=== PATIENT | female | born 1980 | race African-American/Black ===

== ENCOUNTER 2017-06-25 19:57 | Emergency (ER) | payer SELFPAY ==
[2017-06-25] VITALS (12 sets, daily range): BP systolic 131–143; BP diastolic 85–94; PULSE 79–108; RESP 18; TEMP 98.7
[~2017-06-25 19:57] MED LIST: PRENCAP6 PO
[2017-06-25] MEDS ORDERED: LACTATED RINGER'S 1000 ML INJ 1,000 ML IV SCH (20:26)
[2017-06-25] MEDS ORDERED: ONDANSETRON HCL 4 MG/2 ML VIAL IV PUSH ONE (20:30)
--- NOTE | 2017-06-25 20:37 | PD ---
HPI Chief Complaint N/V/D/abd pain Date Seen: Jun 25, 2017 Time Seen: 20:28 Travel History International Travel<30 Days: No Contact w/Intl Traveler<30Days: No Known Affected Area: No History of Present Illness HPI Pt is a 37y/o @ 31.5wks. She has PNC with Dr. Contreras. She presents this evening for evaluation of possible food poisoning. She states that she ate some seafood yesterday and around 2am last night woke up with indigestion and gas pains. She had emesis and diarrhea. She took diclegis twice today but still was not able to keep down any food. She denies anyone else being sick but no one else ate what she did. She reports feeling BH ctx which are not painful but noticable. She denies LOF or VB. She has +FM. is complicated by AMA, h/o preE in prior preg (was on ASA 81mg until the weekend when she ran out), and failed 1hr glucola (passed 3hr). Weeks Gestation: 31 Para: 2 : 3 History Past Medical History Medical History: Denies Significant Hx Obstetric History Obstetric History x2 h/o preE with G2 Past Surgical History Surgical History: No Previous Surgery Family History Family History: Negative Social History Alcohol Use: No Tobacco Use: No Substance Abuse: No Allergies-Medications (Allergen,Severity, Reaction): Coded Allergies: No Known Allergies (Unverified , 05/02/13) Home Meds Reported Medications Mv & Min W/Fe Fumarat ( 1) Cap, 1 CAP PO DAILY, CAP 05/02/13 Review of Systems Except as stated in HPI: all other systems reviewed are Neg Physical Exam Vital Signs Date Time Temp Pulse Resp B/P (MAP) Pulse Ox O2 Delivery O2 Flow Rate FiO2 06/25/17 20:23 100 143/89 (107) 06/25/17 20:20 108 06/25/17 20:18 98.7 18 Narrative GENERAL: Well-nourished, well-developed patient. SKIN: Warm and dry. HEAD: Normocephalic and atraumatic. EYES: No scleral icterus. No injection or drainage. ABDOMEN/GI: Abdomen soft, non-tender, gravid EXTREMITIES: No cyanosis NEUROLOGICAL: Awake and alert. Motor and sensory grossly within normal limits. FHTs: 150, +accels, occasional mild variable decels, moderate variability, age appropriate TOCO: irregular ctx Data Data Vital Signs Reviewed: Yes Orders Orders Vital Signs (Adult) .ON ADMISSION (06/25/17 20:11) ^ Labor Status (06/25/17 20:11) Urinalysis - C+S If Indicated (06/25/17 20:11) ^ Non Stress Test (06/25/17 20:11) Cbc No Diff, Includes Plts (06/25/17 20:26) Comprehensive Metabolic Panel (06/25/17 20:) Lactated Ringer's 1000 Ml Inj (Lr 1000 M (06/25/17 20:26) Ondansetron Inj (Zofran Inj) (06/25/17 20:30) MDM Plan 37y/o @ 31.5wks with 1. IUP -- cat 1 tracing -- toco with irregular ctx, likely dehydration; bolus per #2 2. N/V -- food indiscretion vs viral gastroenteritis vs UTI -- check UA -- IVF bolus -- IV zofran -- PO challenge 3. elevated BPs -- mild range -- asx -- h/o preE in G2 -- check PIH labs and cycle BPs q15m 4. AMA Diagnosis Diagnosis: Primary Impression: 31 weeks gestation of Additional Impressions: Elevated blood pressure affecting in third trimester, antepartum Nausea and vomiting AMA (advanced maternal age) multigravida 35+ History of pre-eclampsia in prior , currently in third trimester Olga Lidia Thomas MD Jun 25, 2017 20:37
[2017-06-25 21:15] LABS: HEMATOCRIT 33.2 % (35.0-46.0); MEAN CELL VOLUME 71.3 FL (80.0-100.0); MEAN CORPUSCULAR HEMOGLOBIN 23.8 PG (27.0-34.0); MEAN CORPUSCULAR HGB CONC 33.3 % (32.0-36.0); PLATELET COUNT 203 TH/MM3 (150-450); RED BLOOD COUNT 4.65 MIL/MM3 (4.00-5.30); RED CELL DISTRIBUTION WIDTH 18.5 % (11.6-17.2); WHITE BLOOD COUNT 12.9 TH/MM3 (4.0-11.0)
[2017-06-25 21:32] LABS: BACTERIA, URINE RARE /hpf; BLOOD, URINE NEG (NEG); COMMENT (UR) CULT NOT INDICATED; CULTURE IF INDICATED CULT NOT INDICATED; GLUCOSE,URINE NEG (NEG); KETONE, URINE NEG (NEG); MUCUS URINE FEW /lpf (OCC); NITRITE,URINE NEG (NEG); SQUAMOUS EPITHELIAL CELL URINE 3 /hpf (0-5); URINE COLOR YELLOW (YELLW/STRAW)
[2017-06-25 21:34] LABS: REVIEW FLAG FINAL
[2017-06-25 21:36] LABS: ANION GAP 11 MEQ/L (5-15); AST (GOT) 23 U/L (15-37); BICARBONATE 21.2 MEQ/L (21.0-32.0); BLOOD UREA NITROGEN 3 MG/DL (7-18); CHLORIDE 104 MEQ/L (98-107); GLOMERULAR FILTRATION RATE 131 ML/MIN (>89); POTASSIUM 3.6 MEQ/L (3.5-5.1); SODIUM (NA) 136 MEQ/L (136-145)
[2017-06-25 21:37] LABS: ALT (GPT) 21 U/L (10-53)
[2017-06-25 21:39] LABS: ALKALINE PHOSPHATASE 161 U/L (45-117); TOTAL BILIRUBIN ADULT 0.5 MG/DL (0.2-1.0)
[2017-06-25] MEDS ORDERED: ASPI-516 CHEW (21:40)
[2017-06-25] MEDS ORDERED: FERR325C PO (21:40)
[2017-06-25] MEDS ORDERED: [UNRECOGNIZED DRUG - OTHER] PO (21:40)
== END 2017-06-25 21:57 | disposition home or self-care (01) ==
LOC: HOBED 19:57
DX: O26.893 Other specified pregnancy related conditions, third trimester (principal); R11.2 Nausea with vomiting, unspecified; R03.0 Elevated blood-pressure reading, without diagnosis of hypertension; O09.523 Supervision of elderly multigravida, third trimester; Z3A.31 31 weeks gestation of pregnancy
CPT/HCPCS: 59025; 80053; 80307; 81001; 82570; 84156; 85027; 96374; 99284; J2405; J7120

== ENCOUNTER 2017-07-21 14:52 | Emergency (ER) | payer BC ==
[2017-07-21] VITALS (7 sets, daily range): BP systolic 129–150; BP diastolic 76–91; PULSE 77–88; RESP 17–18
[~2017-07-21 14:52] MED LIST changes: +ASPI-516 CHEW; +FERR325C PO; +[UNRECOGNIZED DRUG - OTHER] PO
--- NOTE | 2017-07-21 16:09 | PD ---
HPI Chief Complaint Elevated blood pressure Date Seen: Jul 21, 2017 Time Seen: 16:07 Travel History International Travel<30 Days: No Contact w/Intl Traveler<30Days: No Known Affected Area: No History of Present Illness HPI 37-year-old who is at 35 weeks 3 days comes in today because of elevated blood pressure in the office. Office blood pressure was 152/108 and 148/110. Patient has a mild headache but otherwise has no other symptoms and denies edema or epigastric pain. She has a history of one delivery due to induction and from preeclampsia in the past. Weeks Gestation: 35 Para: 2 : 3 History Past Medical History Narrative Medical Anemia necessitating iron infusion 2 Medical History: Denies Significant Hx Obstetric History Obstetric History Spontaneous vaginal delivery 2 Past Surgical History Surgical History: No Previous Surgery Family History Family History: Negative Social History Alcohol Use: No Tobacco Use: No Substance Abuse: No Allergies-Medications (Allergen,Severity, Reaction): Coded Allergies: No Known Allergies (Unverified , 05/02/13) Home Meds Reported Medications Aspirin (Aspirin) 81 Mg Chew, 81 MG CHEW DAILY, TAB 0 Refills 06/25/17 [declegis] No Conflict Check, 10 MG PO BID for Nausea/Vomiting 06/25/17 Ferrous Sulfate (Iron) 325 Mg Cap, 325 MG PO DAILY for Nutritional Supplement, # 30 TAB 0 Refills 06/25/17 Mv & Min W/Fe Fumarat ( 1) 30 Mg-975 Mcg-200 Mg Cap, 1 CAP PO DAILY, CAP 05/02/13 Review of Systems Except as stated in HPI: all other systems reviewed are Neg Physical Exam Narrative GENERAL: Well-nourished, well-developed patient. SKIN: Warm and dry. HEAD: Normocephalic and atraumatic. EYES: No scleral icterus. No injection or drainage. ENT: No nasal drainage noted. Mucous membranes pink. Airway patent. NECK: Supple, trachea midline. No JVD. CARDIOVASCULAR: Regular rate and rhythm without murmurs, gallops, or rubs. RESPIRATORY: Breath sounds equal bilaterally. No accessory muscle use. ABDOMEN/GI: Abdomen soft, non-tender, bowel sounds present, no rebound, no guarding Gravid to [-36] weeks size Fundal Height: [-] GENITOURINARY: External Genitalia: intact and normal in appearance BUS glands: [-] Cervix: [-] Dilatation: [-] Effacement: [-] Station: [-] Presentation: [-] Membranes: [intact or ruptured] Uterine Contractions: [-] FHT's: Category: [-1] Baseline: [-] 140 Reactive: [-] Moderate Variability: [-] Moderate Decels: [-] Absent EXTREMITIES: No cyanosis or edema. BACK: Nontender without obvious deformity. No CVA tenderness. NEUROLOGICAL: Awake and alert. Motor and sensory grossly within normal limits. Five out of 5 muscle strength in all muscle groups. Normal speech. Data Data Vital Signs Reviewed: Yes Orders Orders Vital Signs (Adult) .ON ADMISSION (07/21/17 16:06) ^ Labor Status (07/21/17 16:06) Urinalysis - C+S If Indicated (07/21/17 16:06) Diet Liquid (07/21/17 Dinner) Cbc No Diff, Includes Plts (07/21/17 16:06) Comprehensive Metabolic Panel (07/21/17 16:06) Uric Acid (07/21/17 16:06) Acetaminophen (Tylenol) (07/21/17 16:15) Labs Laboratory Tests Test 07/21/17 16:29 White Blood Count 9.3 TH/MM3 Red Blood Count 4.19 MIL/MM3 Hemoglobin 10.0 GM/DL Hematocrit 30.9 % Mean Corpuscular Volume 73.9 FL Mean Corpuscular Hemoglobin 23.9 PG Mean Corpuscular Hemoglobin Concent 32.4 % Red Cell Distribution Width 20.5 % Platelet Count 148 TH/MM3 Mean Platelet Volume 10.7 FL Urine Color LIGHT-YELLOW Urine Turbidity CLEAR Urine pH 6.5 Urine Specific [place] 1.006 Urine Protein TRACE mg/dL Urine Glucose (UA) NEG mg/dL Urine Ketones NEG mg/dL Urine Occult Blood MOD Urine Nitrite NEG Urine Bilirubin NEG Urine Urobilinogen LESS THAN 2.0 MG/DL Urine Leukocyte Esterase NEG Urine RBC 8 /hpf Urine WBC 1 /hpf Urine Squamous Epithelial Cells 1 /hpf Urine Bacteria RARE /hpf Microscopic Urinalysis Comment CULT NOT INDICATED Blood Urea Nitrogen 5 MG/DL Creatinine 0.66 MG/DL Random Glucose 72 MG/DL Total Protein 7.0 GM/DL Albumin 2.6 GM/DL Calcium Level 8.5 MG/DL Uric Acid 4.9 MG/DL Alkaline Phosphatase 190 U/L Aspartate Amino Transf (AST/SGOT) 28 U/L Alanine Aminotransferase (ALT/SGPT) 13 U/L Total Bilirubin 0.2 MG/DL Sodium Level 136 MEQ/L Potassium Level 3.7 MEQ/L Chloride Level 107 MEQ/L Carbon Dioxide Level 22.3 MEQ/L Anion Gap 7 MEQ/L Estimat Glomerular Filtration Rate 122 ML/MIN [facility] Medical Record Reviewed: Yes Plan 37-year-old at 35 weeks and 3 days with mildly elevated blood pressures and normal lab values. Patient will see Dr. Contreras again on Thursday and I've given her 24-hour urine collection and taken her off work. Diagnosis Diagnosis: Primary Impression: 35 weeks gestation of Additional Impressions: History of pre-eclampsia in prior , currently in third trimester Gestational hypertension w/o significant proteinuria in 3rd trimester Disposition: 01 DISCHARGE HOME Rosalba Gonzales MD Jul 21, 2017 16:09
[2017-07-21] MEDS ORDERED: ACETAMINOPHEN 325 MG TAB PO ONE (16:15)
[2017-07-21 17:27] LABS: HEMATOCRIT 30.9 % (35.0-46.0); MEAN CELL VOLUME 73.9 FL (80.0-100.0); MEAN CORPUSCULAR HEMOGLOBIN 23.9 PG (27.0-34.0); MEAN CORPUSCULAR HGB CONC 32.4 % (32.0-36.0); PLATELET COUNT 148 TH/MM3 (150-450); RED BLOOD COUNT 4.19 MIL/MM3 (4.00-5.30); RED CELL DISTRIBUTION WIDTH 20.5 % (11.6-17.2); REVIEW FLAG FINAL; WHITE BLOOD COUNT 9.3 TH/MM3 (4.0-11.0)
[2017-07-21 17:36] LABS: BACTERIA, URINE RARE /hpf; BLOOD, URINE MOD (NEG); COMMENT (UR) CULT NOT INDICATED; CULTURE IF INDICATED CULT NOT INDICATED; GLUCOSE,URINE NEG (NEG); KETONE, URINE NEG (NEG); NITRITE,URINE NEG (NEG); PH, URINE 6.5 (5.0-8.5); SQUAMOUS EPITHELIAL CELL URINE 1 /hpf (0-5); URINE COLOR LIGHT-YELLOW (YELLW/STRAW)
[2017-07-21 17:58] LABS: ALT (GPT) 13 U/L (10-53)
[2017-07-21 17:59] LABS: ALKALINE PHOSPHATASE 190 U/L (45-117); TOTAL BILIRUBIN ADULT 0.2 MG/DL (0.2-1.0)
[2017-07-21 18:01] LABS: ANION GAP 7 MEQ/L (5-15); AST (GOT) 28 U/L (15-37); BICARBONATE 22.3 MEQ/L (21.0-32.0); BLOOD UREA NITROGEN 5 MG/DL (7-18); CHLORIDE 107 MEQ/L (98-107); GLOMERULAR FILTRATION RATE 122 ML/MIN (>89); POTASSIUM 3.7 MEQ/L (3.5-5.1); SODIUM (NA) 136 MEQ/L (136-145); URIC ACID 4.9 MG/DL (2.6-6.0)
[2017-07-22 21:23] LABS: URINE TOTAL PROTEIN TIMED 24.8 MG/DL
== END 2017-07-21 19:28 | disposition home or self-care (01) ==
LOC: HOBED 14:52
DX: O13.3 Gestational [pregnancy-induced] hypertension without significant proteinuria, third trimester (principal); R51 Headache; Z3A.35 35 weeks gestation of pregnancy
CPT/HCPCS: 36415; 59025; 80053; 81001; 84157; 84550; 85027

== ENCOUNTER 2017-07-24 11:03 | Inpatient (IN) | payer BC ==
[2017-07-23] MEDS: LACTATED RINGER'S 1000 ML INJ 1,000 ML IV SCH (13:45)
[2017-07-24] VITALS (35 sets, daily range): BP systolic 120–147; BP diastolic 71–95; PULSE 64–91; RESP 18; TEMP 97.3–99.2
[~2017-07-24] VITALS: Ht 165.1 cm; Wt 76.7 kg
[2017-07-24] MEDS: LACTATED RINGER'S 1000 ML INJ 1,000 ML IV SCH ×3 (05:45→21:46)
[2017-07-24 11:56] LABS: HEMATOCRIT 33.5 % (35.0-46.0); MEAN CELL VOLUME 73.2 FL (80.0-100.0); MEAN CORPUSCULAR HGB CONC 31.5 % (32.0-36.0); PLATELET COUNT 124 TH/MM3 (150-450); RED BLOOD COUNT 4.58 MIL/MM3 (4.00-5.30); RED CELL DISTRIBUTION WIDTH 20.9 % (11.6-17.2); REVIEW FLAG FINAL; WHITE BLOOD COUNT 7.5 TH/MM3 (4.0-11.0)
[2017-07-24 11:59] LABS: BACTERIA, URINE RARE /hpf; BLOOD, URINE SMALL (NEG); COMMENT (UR) CULT NOT INDICATED; CULTURE IF INDICATED CULT NOT INDICATED; GLUCOSE,URINE NEG (NEG); KETONE, URINE NEG (NEG); MUCUS URINE FEW /lpf (OCC); NITRITE,URINE NEG (NEG); SQUAMOUS EPITHELIAL CELL URINE 3 /hpf (0-5); URINE COLOR YELLOW (YELLW/STRAW)
[2017-07-24 12:20] LABS: ALT (GPT) 19 U/L (10-53); ANION GAP 7 MEQ/L (5-15); AST (GOT) 18 U/L (15-37); BICARBONATE 24.7 MEQ/L (21.0-32.0); BLOOD UREA NITROGEN 3 MG/DL (7-18); CHLORIDE 107 MEQ/L (98-107); GLOMERULAR FILTRATION RATE 139 ML/MIN (>89); POTASSIUM 3.5 MEQ/L (3.5-5.1); SODIUM (NA) 139 MEQ/L (136-145); URIC ACID 4.9 MG/DL (2.6-6.0)
[2017-07-24 12:22] LABS: ALKALINE PHOSPHATASE 209 U/L (45-117); TOTAL BILIRUBIN ADULT 0.4 MG/DL (0.2-1.0)
--- NOTE | 2017-07-24 13:46 | PD ---
HPI Chief Complaint 35 weeks and 6 days Headache Nausea and vomiting Elevated BP Travel History International Travel<30 Days: No Contact w/Intl Traveler<30Days: No Known Affected Area: No History of Present Illness HPI Pt is a 37 yo . Pt under care of Dr Contreras, Pt was seen here with elevated BPs on 07/22/2017. She was sent home on modified bed rest and started 24 hour urine collection. Pt was then started on Labetalol 100mg po BID Pt has h/o prior IOL o/a pre-eclampsia. Platelets are 124,000 today, down from 148,000 on 07/22/2017 Pt presents today, c/o headaches, no vision changes but reports nausea and vomiting. Active movements. No vaginal bleeding or discharge. Pt states GBS was negative in office. Weeks Gestation: 36 Para: 2 : 3 History Past Medical History Medical History: Denies Significant Hx Obstetric History Obstetric History Previous h/o pre-eclampsia. Induced. Past Surgical History Surgical History: No Previous Surgery Family History Family History: Negative Social History Alcohol Use: No Tobacco Use: No Substance Abuse: No Allergies-Medications (Allergen,Severity, Reaction): Coded Allergies: No Known Allergies (Unverified Adverse Reaction, Unknown, 07/24/17) Home Meds Reported Medications Aspirin (Aspirin) 81 Mg Chew, 81 MG CHEW DAILY, TAB 0 Refills 06/25/17 [declegis] No Conflict Check, 10 MG PO BID for Nausea/Vomiting 06/25/17 Ferrous Sulfate (Iron) 325 Mg Cap, 325 MG PO DAILY for Nutritional Supplement, # 30 TAB 0 Refills 06/25/17 Mv & Min W/Fe Fumarat ( 1) 30 Mg-975 Mcg-200 Mg Cap, 1 CAP PO DAILY, CAP 05/02/13 Review of Systems Except as stated in HPI: all other systems reviewed are Neg Physical Exam Vital Signs Date Time Temp Pulse Resp B/P (MAP) Pulse Ox O2 Delivery O2 Flow Rate FiO2 07/24/17 13:00 79 133/86 (102) 07/24/17 12:45 83 139/95 (110) 07/24/17 12:30 82 142/89 (106) 07/24/17 12:15 90 135/92 (106) 07/24/17 12:00 91 138/94 (109) 07/24/17 11:45 90 146/91 (109) 07/24/17 11:43 97.3 18 07/24/17 11:39 79 139/94 (109) Narrative GENERAL: Well-nourished, well-developed patient. SKIN: Warm and dry. HEAD: Normocephalic and atraumatic. EYES: No scleral icterus. No injection or drainage. ENT: No nasal drainage noted. Mucous membranes pink. Airway patent. NECK: Supple, trachea midline. No JVD. CARDIOVASCULAR: Regular rate and rhythm without murmurs, gallops, or rubs. RESPIRATORY: Breath sounds equal bilaterally. No accessory muscle use. BREASTS: Bilateral exam showed no masses , no retractions, no nipple discharge. ABDOMEN/GI: Abdomen soft, non-tender, bowel sounds present, no rebound, no guarding Gravid to [36] weeks size Fundal Height: [36] GENITOURINARY: External Genitalia: intact and normal in appearance Cervix: [soft] Dilatation: [1cm] Effacement: [60%] Station: [-3] Presentation: [-] Membranes: [intact] Uterine Contractions: [between 2-6 minutes, patient does not feel these-] FHT's: Category: [1] Baseline: [130] Reactive: [-] Variability: [good] Decels: [none] EXTREMITIES: No cyanosis or edema. BACK: Nontender without obvious deformity. No CVA tenderness. NEUROLOGICAL: Awake and alert. Motor and sensory grossly within normal limits. Five out of 5 muscle strength in all muscle groups. Normal speech. Data Data Vital Signs Reviewed: Yes Orders Orders Vital Signs (Adult) .ON ADMISSION (07/24/17 11:14) ^ Labor Status (07/24/17 11:14) Cbc No Diff, Includes Plts (07/24/17 11:14) Comprehensive Metabolic Panel (07/24/17 11:14) Uric Acid (07/24/17 11:14) Urinalysis - C+S If Indicated (07/24/17 11:29) Group B Strep: Negative Labs Laboratory Tests Test 07/24/17 11:35 White Blood Count 7.5 Red Blood Count 4.58 Hemoglobin 10.6 Hematocrit 33.5 Mean Corpuscular Volume 73.2 Mean Corpuscular Hemoglobin 23.0 Mean Corpuscular Hemoglobin Concent 31.5 Red Cell Distribution Width 20.9 Platelet Count 124 Mean Platelet Volume 9.3 Urine Color YELLOW Urine Turbidity CLEAR Urine pH 7.0 Urine Specific [place] 1.012 Urine Protein 30 Urine Glucose (UA) NEG Urine Ketones NEG Urine Occult Blood SMALL Urine Nitrite NEG Urine Bilirubin NEG Urine Urobilinogen LESS THAN 2.0 Urine Leukocyte Esterase NEG Urine RBC 23 Urine WBC 1 Urine Squamous Epithelial Cells 3 Urine Bacteria RARE Urine Mucus FEW Microscopic Urinalysis Comment CULT NOT INDICATED Blood Urea Nitrogen 3 Creatinine 0.59 Random Glucose 83 Total Protein 7.5 Albumin 2.9 Calcium Level 8.6 Uric Acid 4.9 Alkaline Phosphatase 209 Aspartate Amino Transf (AST/SGOT) 18 Alanine Aminotransferase (ALT/SGPT) 19 Total Bilirubin 0.4 Sodium Level 139 Potassium Level 3.5 Chloride Level 107 Carbon Dioxide Level 24.7 Anion Gap 7 Estimat Glomerular Filtration Rate 139 MDM Medical Record Reviewed: Yes Interpretation(s) 37 yo at 35 weeks and 6 days. Admitted for pre-eclampsia. BP 130/90-100 despite being on Labetalol 100mg BID 521 mg on 24 hour urine protein Platelets down to 124,000 down from 148,00 2 days ago. Cervix not favorable but jean pierre too frequently for Misoprostil. We plan low dose Pitocin with Cervical balloon. GBS negative Diagnosis Diagnosis: Primary Impression: 36 weeks gestation of Additional Impressions: Pre-eclampsia Admitted to labor and delivery Jac Chowdhury MD Jul 24, 2017 13:46
[2017-07-24] MEDS ORDERED: LACTATED RINGER'S 1000 ML INJ 1,000 ML IV PRN (14:24)
[2017-07-24] MEDS ORDERED: LIDOCAINE HCL 1% 50 ML VIAL I-DERMAL PRN (14:30)
[2017-07-24] MEDS ORDERED: OXYTOCIN 30 UNITS-500ML PREMIX 500 ML IV ONE (14:30)
[2017-07-24] MEDS ORDERED: ONDANSETRON HCL 4 MG/2 ML VIAL IV PUSH PRN (14:30)
[2017-07-24] MEDS ORDERED: CITRIC ACID-SODIUM CITRATE LIQ 30 ML UDC PO SCH (14:30)
[2017-07-24] MEDS ORDERED: MINERAL OIL 10 ML VIAL TOPICAL PRN (14:30)
[2017-07-24] MEDS ORDERED: LIDOCAINE HCL 1% 50 ML VIAL INFIL PRN (14:30)
[2017-07-24] MEDS ORDERED: SODIUM CHLORID 0.9% 500 ML INJ 500 ML IV PRN (14:30)
--- NOTE | 2017-07-24 14:35 | HHI.HP ---
HPI Chief Complaint 35 weeks and 6 days Headaches, nausea /vomiting Elevated BP Travel History International Travel<30 Days: No Contact w/Intl Traveler<30Days: No Known Affected Area: No History of Present Illness HPI Pt is a 37 yo . Pt under care of Dr Contreras, Pt was seen here with elevated BPs on 07/22/2017. She was sent home on modified bed rest and started 24 hour urine collection. Pt was then started on Labetalol 100mg po BID Pt has h/o prior IOL o/a pre-eclampsia. Platelets are 124,000 today, down from 148,000 on 07/22/2017 Pt presents today, c/o headaches, no vision changes but reports nausea and vomiting. Active movements. No vaginal bleeding or discharge. Pt states GBS was negative in office. Weeks Gestation: 36 Para: 2 : 3 History Past Medical History Medical History: Denies Significant Hx Obstetric History Obstetric History Previous h/o pre-eclampsia Past Surgical History Surgical History: No Previous Surgery Family History Family History: Negative Social History Alcohol Use: No Tobacco Use: No Substance Abuse: No Allergies-Medications (Allergen,Severity, Reaction): Coded Allergies: No Known Allergies (Unverified Adverse Reaction, Unknown, 07/24/17) Home Meds Reported Medications Aspirin (Aspirin) 81 Mg Chew, 81 MG CHEW DAILY, TAB 0 Refills 06/25/17 [declegis] No Conflict Check, 10 MG PO BID for Nausea/Vomiting 06/25/17 Ferrous Sulfate (Iron) 325 Mg Cap, 325 MG PO DAILY for Nutritional Supplement, # 30 TAB 0 Refills 06/25/17 Mv & Min W/Fe Fumarat ( 1) 30 Mg-975 Mcg-200 Mg Cap, 1 CAP PO DAILY, CAP 05/02/13 Review of Systems Except as stated in HPI: all other systems reviewed are Neg Physical Exam Vital Signs Date Time Temp Pulse Resp B/P (MAP) Pulse Ox O2 Delivery O2 Flow Rate FiO2 07/24/17 13:15 82 133/87 (102) 07/24/17 13:00 79 133/86 (102) 07/24/17 12:45 83 139/95 (110) 07/24/17 12:30 82 142/89 (106) 07/24/17 12:15 90 135/92 (106) 07/24/17 12:00 91 138/94 (109) 07/24/17 11:45 90 146/91 (109) 07/24/17 11:43 97.3 18 07/24/17 11:39 79 139/94 (109) Narrative GENERAL: Well-nourished, well-developed patient. SKIN: Warm and dry. HEAD: Normocephalic and atraumatic. EYES: No scleral icterus. No injection or drainage. ENT: No nasal drainage noted. Mucous membranes pink. Airway patent. NECK: Supple, trachea midline. No JVD. CARDIOVASCULAR: Regular rate and rhythm without murmurs, gallops, or rubs. RESPIRATORY: Breath sounds equal bilaterally. No accessory muscle use. BREASTS: Bilateral exam showed no masses , no retractions, no nipple discharge. ABDOMEN/GI: Abdomen soft, non-tender, bowel sounds present, no rebound, no guarding Gravid to [36] weeks size Fundal Height: [36] GENITOURINARY: External Genitalia: intact and normal in appearance BUS glands: [wnl] Cervix: [soft] Dilatation: [1cm] Effacement: [60%] Station: [-3] Presentation: [vertex] Membranes: [intact] Uterine Contractions: [2-6 minutes] FHT's: Category: [1] Baseline: [130s] Reactive: [Y] Variability: [good] Decels: [decells] EXTREMITIES: No cyanosis or edema. BACK: Nontender without obvious deformity. No CVA tenderness. NEUROLOGICAL: Awake and alert. Motor and sensory grossly within normal limits. Five out of 5 muscle strength in all muscle groups. Normal speech. Caprini VTE Risk Assessment Caprini VTE Risk Assessment: No/Low Risk (score <= 1) Caprini Risk Assessment Model Point Value = 1 Point Value = 2 Point Value = 3 Point Value = 5 Age 41-60 Minor surgery BMI > 25 kg/m2 Swollen legs Varicose veins or History of unexplained or recurrent spontaneous Oral contraceptives or hormone replacement Sepsis (< 1 month) Serious lung disease, including pneumonia (< 1 month) Abnormal pulmonary function Acute myocardial infarction Congestive heart failure (< 1 month) History of inflammatory bowel disease Medical patient at bed rest Age 61-74 Arthroscopic surgery Major open surgery (> 45 min) Laparoscopic surgery (> 45 min) Malignancy Confined to bed (> 72 hours) Immobilizing plaster cast Central venous access Age >= 75 History of VTE Family history of VTE Factor V Leiden Prothrombin [id number] Lupus anticoagulant Anticardiolipin antibodies Elevated serum homocysteine Heparin-induced thrombocytopenia Other congenital or acquired thrombophilia Stroke (< 1 month) Elective arthroplasty Hip, pelvis, or leg fracture Acute spinal cord injury (< 1 month) Prophylaxis Regimen Total Risk Factor Score Risk Level Prophylaxis Regimen 0-1 Low Early ambulation 2 Moderate Order ONE of the following: *Sequential Compression Device (SCD) *Heparin 5000 units SQ BID 3-4 Higher Order ONE of the following medications: *Heparin 5000 units SQ TID *Enoxaparin/Lovenox 40 mg SQ daily (WT < 150 kg, CrCl > 30 mL/min) *Enoxaparin/Lovenox 30 mg SQ daily (WT < 150 kg, CrCl > 10-29 mL/min) *Enoxaparin/Lovenox 30 mg SQ BID (WT < 150 kg, CrCl > 30 mL/min) AND/OR *Sequential Compression Device (SCD) 5 or more Highest Order ONE of the following medications: *Heparin 5000 units SQ TID (Preferred with Epidurals) *Enoxaparin/Lovenox 40 mg SQ daily (WT < 150 kg, CrCl > 30 mL/min) *Enoxaparin/Lovenox 30 mg SQ daily (WT < 150 kg, CrCl > 10-29 mL/min) *Enoxaparin/Lovenox 30 mg SQ BID (WT < 150 kg, CrCl > 30 mL/min) AND *Sequential Compression Device (SCD) Data Data Vital Signs Reviewed: Yes Orders Orders Vital Signs (Adult) .ON ADMISSION (07/24/17 11:14) ^ Labor Status (07/24/17 11:14) Cbc No Diff, Includes Plts (07/24/17 11:14) Comprehensive Metabolic Panel (07/24/17 11:14) Uric Acid (07/24/17 11:14) Urinalysis - C+S If Indicated (07/24/17 11:29) Ob (2e) Additional Admit Info (07/24/17 13:32) Diet Regular Basic (07/24/17 Lunch) Group B Strep: Negative Labs Laboratory Tests Test 07/24/17 11:35 White Blood Count 7.5 Red Blood Count 4.58 Hemoglobin 10.6 Hematocrit 33.5 Mean Corpuscular Volume 73.2 Mean Corpuscular Hemoglobin 23.0 Mean Corpuscular Hemoglobin Concent 31.5 Red Cell Distribution Width 20.9 Platelet Count 124 Mean Platelet Volume 9.3 Urine Color YELLOW Urine Turbidity CLEAR Urine pH 7.0 Urine Specific [place] 1.012 Urine Protein 30 Urine Glucose (UA) NEG Urine Ketones NEG Urine Occult Blood SMALL Urine Nitrite NEG Urine Bilirubin NEG Urine Urobilinogen LESS THAN 2.0 Urine Leukocyte Esterase NEG Urine RBC 23 Urine WBC 1 Urine Squamous Epithelial Cells 3 Urine Bacteria RARE Urine Mucus FEW Microscopic Urinalysis Comment CULT NOT INDICATED Blood Urea Nitrogen 3 Creatinine 0.59 Random Glucose 83 Total Protein 7.5 Albumin 2.9 Calcium Level 8.6 Uric Acid 4.9 Alkaline Phosphatase 209 Aspartate Amino Transf (AST/SGOT) 18 Alanine Aminotransferase (ALT/SGPT) 19 Total Bilirubin 0.4 Sodium Level 139 Potassium Level 3.5 Chloride Level 107 Carbon Dioxide Level 24.7 Anion Gap 7 Estimat Glomerular Filtration Rate 139 Assessment/Plan Assessment and Plan 37 yo at 35 weeks and 6 days . Patient being admitted for IOL o/a Pre-eclampsia without severe symptoms. Normal tendon reflexes at patella. Pt has low platelets, and BP is at 130s/90s We plan low dose Pitocin and will attempt cervical balloon Attending Attestation I personally interviewed and examined this patient and was involved in all significant decision making Jac Chowdhury MD Jul 24, 2017 14:35
[2017-07-24] MEDS ORDERED: SODIUM CHLOR 0.9% 1000 ML INJ 1,000 ML IV PRN (14:44)
[2017-07-24] MEDS ORDERED: OXYTOCIN 30 UNITS-500ML PREMIX 500 ML IV SCH (15:00)
[2017-07-25] VITALS (74 sets, daily range): BP systolic 106–173; BP diastolic 38–107; PULSE 60–107; RESP 17–20; TEMP 98.5–98.9; O2SAT 98
[2017-07-25] MEDS: LACTATED RINGER'S 1000 ML INJ 1,000 ML IV SCH ×2 (05:45→05:47)
--- NOTE | 2017-07-25 09:05 | PD.LABORPN ---
Subjective Subjective requesting pain meds Objective Vital Signs Vital Signs Date Time Temp Pulse Resp B/P (MAP) Pulse Ox O2 Delivery O2 Flow Rate FiO2 07/25/17 08:15 70 146/87 (106) 07/25/17 08:00 67 138/89 (105) 07/25/17 07:45 72 139/85 (103) 07/25/17 07:30 98.9 74 18 147/95 (112) 07/25/17 07:00 70 140/90 (107) 07/25/17 06:45 67 144/90 (108) 07/25/17 06:30 69 137/93 (108) 07/25/17 06:30 18 07/25/17 06:15 67 134/85 (101) 07/25/17 06:00 17 07/25/17 06:00 68 142/83 (102) 07/25/17 05:53 98.9 07/25/17 05:45 71 138/83 (101) 07/25/17 05:30 17 07/25/17 05:30 68 133/83 (100) 07/25/17 05:15 67 129/82 (98) 07/25/17 05:00 70 137/88 (104) 07/25/17 05:00 18 07/25/17 04:46 69 148/83 (104) 07/25/17 04:30 18 07/25/17 04:30 70 146/75 (98) 07/25/17 04:15 71 149/88 (108) 07/25/17 04:00 69 144/96 (112) 07/25/17 04:00 17 07/25/17 03:45 68 07/25/17 03:45 138/92 (107) 07/25/17 03:30 17 07/25/17 03:30 69 139/93 (108) 07/25/17 03:15 75 140/90 (107) 07/25/17 03:00 68 139/89 (106) 07/25/17 03:00 18 07/25/17 02:45 73 136/96 (109) 07/25/17 02:30 67 07/25/17 02:30 18 07/25/17 02:30 132/83 (99) 07/25/17 02:15 66 139/84 (102) 07/25/17 02:00 18 07/25/17 02:00 67 147/85 (105) 07/25/17 01:45 63 141/85 (103) 07/25/17 01:31 61 137/66 (89) 07/25/17 01:30 18 07/25/17 01:15 60 149/79 (102) Objective Pelvic Exam: Cervix: [-] Dilatation: [-] 4 Effacement: [-] 80 Station: [-] -2 Presentation: [-] vtx Membranes: [intact or ruptured] arom clear Uterine Contractions: [-] q4-5 min FHT's: Category: [-] 1 Baseline: [-] Reactive: [-] R Variability: [-] good Decels: [-] Weeks Gestation: 36 Gest Age Assessed Date: Jul 25, 2017 Gest Age Assessed Time: 09:02 Pt started active labor?: Yes Active labor start date: Jul 25, 2017 Active labor start time: 09:02 Medical induction of labor?: Yes Medical induction start date: Jul 24, 2017 Medical induction start time: 14:00 Artificial rupture of membrane: Yes Artificial ROM date: Jul 25, 2017 Artifical ROM time: 09:02 Assessment/Plan Problem List: (1) Pre-eclampsia ICD Codes: O14.90 - Unspecified pre-eclampsia, unspecified trimester Status: Acute (2) 36 weeks gestation of ICD Codes: Z3A.36 - 36 weeks gestation of Status: Acute Assessment and Plan Arom , on pitocin 12 mu f/u labor progress, anticipate analgesia Cher Oliver MD Jul 25, 2017 09:05
[2017-07-25] MEDS ORDERED: fentaNYL 2MCG-BUPIV 0.125% INJ 100 ML ONE (09:51)
[2017-07-25] MEDS ORDERED: ePHEDrine/NS 25 MG/5 ML SYR ONE (10:02)
--- NOTE | 2017-07-25 11:49 | PD.OB.DELI ---
Weeks gestation: 36 Gest age assessed date: Jul 25, 2017 Gest age assessed time: 09:02 Pt started active labor?: Yes Active labor start date: Jul 25, 2017 Active labor start time: 09:02 Medical induction of labor?: Yes Medical induction start date: Jul 24, 2017 Medical induction start time: 14:00 Artificial rupture of membrane: Yes Artificial ROM date: Jul 25, 2017 Artifical ROM time: 08:31 Anesthesia: Epidural Episiotomy: None Vaginal Delivery: Normal Presentation: Occiput anterior Nuchal Cord: None Delayed cord clamping (45 sec): Yes : Female Delivery date: Jul 25, 2017 Delivery time: 11:37 One Minute : 8 Five Minute : 9 Placenta: Spontaneous delivery Laceration: No lacerations Estimated blood loss: 250cc Cher Zee MD Jul 25, 2017 11:49
[2017-07-25] MEDS ORDERED: ACETAMINOPHEN 325 MG TAB PO PRN (12:00)
[2017-07-25] MEDS ORDERED: ZOLPIDEM TARTRATE 5 MG TAB PO PRN (12:00)
[2017-07-25] MEDS ORDERED: ALUMINUM/MAGNESIUM/SIMETH 30 ML CUP PO PRN (12:00)
[2017-07-25] MEDS ORDERED: OXYTOCIN 30 UNITS-500ML PREMIX 500 ML IV SCH (12:00)
[2017-07-25] MEDS ORDERED: DOCUSATE SODIUM 50 MG/SENNA 8.6 MG TAB PO PRN (12:00)
[2017-07-25] MEDS ORDERED: SODIUM CHLORIDE 0.9% FLUSH 10 ML FLUSH IV FLUSH PRN (12:00)
[2017-07-25] MEDS ORDERED: BENZOCAINE 20% TOPICAL SPRAY 60 ML CAN TOPICAL PRN (12:00)
[2017-07-25] MEDS ORDERED: WITCH HAZEL 50%/GLYCERIN 12.5% 40 PAD JAR TOPICAL PRN (12:00)
[2017-07-25] MEDS ORDERED: OXYTOCIN 30 UNITS-500ML PREMIX 500 ML ONE (12:00)
[2017-07-25] MEDS ORDERED: ONDANSETRON ODT 4 MG TAB PO PRN (12:00)
[2017-07-25] MEDS ORDERED: DIPHTH/TETANUS/ACEL PERTUSSIS (BOOSTER) 0.5 ML VIAL/PFS IM ONE (16:00)
[2017-07-25] MEDS ORDERED: MEASLES, MUMPS, RUBELLA VACCINE 0.5 ML VIAL SQ ONE (16:00)
[2017-07-25] MEDS: LABETALOL HCL 100 MG TAB PO SCH (18:45)
[2017-07-25] MEDS: IBUPROFEN 800 MG TAB PO PRN (20:51)
[2017-07-25] MEDS ORDERED: SODIUM CHLORIDE 0.9% FLUSH 10 ML FLUSH IV FLUSH SCH (21:00)
[2017-07-26 02:28] VITALS: BP 110/76; PULSE 88; RESP 18
[2017-07-26] MEDS: IBUPROFEN 800 MG TAB PO PRN ×2 (03:06→20:06)
[2017-07-26] MEDS: LABETALOL HCL 100 MG TAB PO SCH ×2 (06:00→17:54)
[2017-07-26 06:05] VITALS: BP 134/83; PULSE 67
[2017-07-26 07:53] VITALS: BP 123/61; PULSE 61; RESP 20; TEMP 98.1
--- NOTE | 2017-07-26 09:04 | HHI.OB ---
Subjective Post Day: 1 Remarks no complaints, breast and bottlefeeding Objective Vitals/I&O Vital Signs Date Time Temp Pulse Resp B/P (MAP) Pulse Ox O2 Delivery O2 Flow Rate FiO2 07/26/17 07:53 98.1 61 20 07/26/17 07:53 123/61 (81) 07/26/17 06:05 67 134/83 (100) 07/26/17 02:28 88 18 110/76 (87) 07/25/17 20:53 98.5 74 18 151/85 (107) 98 07/25/17 13:20 18 07/25/17 13:18 66 147/87 (107) 07/25/17 12:55 18 07/25/17 12:45 64 145/82 (103) 07/25/17 12:30 68 146/82 (103) 07/25/17 12:15 70 133/77 (95) 07/25/17 12:12 18 07/25/17 12:10 18 07/25/17 12:00 71 138/80 (99) 07/25/17 11:55 98.9 07/25/17 11:48 75 132/83 (99) 07/25/17 11:47 86 132/38 (69) 07/25/17 11:45 107 127/61 (83) 07/25/17 11:45 18 07/25/17 11:35 105 123/56 (78) 07/25/17 11:31 97 106/58 (74) 07/25/17 11:25 96 135/81 (99) 07/25/17 11:20 86 124/106 (112) 07/25/17 11:15 82 128/71 (90) 07/25/17 11:10 71 126/66 (86) 07/25/17 11:05 75 120/74 (89) 07/25/17 11:00 79 130/68 (88) 07/25/17 10:55 79 125/72 (89) 07/25/17 10:50 75 123/67 (85) 07/25/17 10:50 77 07/25/17 10:45 82 07/25/17 10:45 85 122/71 (88) 07/25/17 10:45 18 07/25/17 10:40 79 07/25/17 10:40 81 124/76 (92) 07/25/17 10:37 98.7 07/25/17 10:35 79 07/25/17 10:35 76 07/25/17 10:35 119/75 (90) 07/25/17 10:30 128/77 (94) 07/25/17 10:30 74 07/25/17 10:30 75 07/25/17 10:27 80 143/85 (104) 07/25/17 10:25 83 07/25/17 10:21 87 173/107 (129) 07/25/17 10:20 87 07/25/17 10:15 18 07/25/17 10:15 76 155/89 (111) 07/25/17 10:00 72 153/81 (105) 07/25/17 09:45 20 07/25/17 09:30 69 160/94 (116) 07/25/17 09:19 70 147/90 (109) 07/25/17 09:15 18 07/25/17 09:15 70 160/97 (118) 07/25/17 09:06 65 138/84 (102) Objective Remarks GENERAL: Well-nourished, well-developed patient. CARDIOVASCULAR: Regular rate and rhythm without murmurs, gallops, or rubs. RESPIRATORY: Breath sounds equal bilaterally. No accessory muscle use. ABDOMEN/GI: Abdomen soft, non-tender. Fundus: Firm, non-tender at umbilicus. GENITOURINARY: Light to moderate bleeding. EXTREMITIES: No cyanosis or edema, non-tender, without signs of DVT. Medications and IVs Current Medications Medications (Trade) Dose Ordered Sig/Gurjit Route Start Time Stop Time Status Last Admin (NS Flush) 2 ml BID IV FLUSH 07/25/17 21:00 (NS Flush) 2 ml UNSCH PRN IV FLUSH 07/25/17 12:00 (Tylenol) 650 mg Q4H PRN PO 07/25/17 12:00 (Motrin) 800 mg Q8H PRN PO 07/25/17 12:00 07/26/17 03:06 (Americaine 20% Top Spr) 1 spray Q4H PRN TOPICAL 07/25/17 12:00 (Tucks Pads) 1 applic QID PRN TOPICAL 07/25/17 12:00 (Sophy-Colace) 2 tab Q12H PRN PO 07/25/17 12:00 (Ambien) 5 mg HS PRN PO 07/25/17 12:00 (Mag-Al Plus Susp Liq) 15 ml Q8H PRN PO 07/25/17 12:00 (Zofran Odt) 4 mg Q6H PRN PO 07/25/17 12:00 (Trandate) 100 mg BID@0600,1800 PO 07/25/17 18:00 07/26/17 06:00 Assessment/Plan Problem List: (1) Pre-eclampsia ICD Codes: O14.90 - Unspecified pre-eclampsia, unspecified trimester Status: Acute (2) 36 weeks gestation of ICD Codes: Z3A.36 - 36 weeks gestation of Status: Acute (3) Vaginal delivery ICD Codes: O80 - Encounter for full-term uncomplicated delivery Assessment and Plan 37 yo at 35 weeks and 6 d , s/p for pre-eclampsia on labetolol 100mg po BID. PPD #1 Discharge Planning routine Attending Attestation pt seen by Cher Burdick MD Jul 26, 2017 09:04
[2017-07-26] MEDS ORDERED: PRAMOXINE 1% RECTAL FOAM 15 GM CAN RECTAL PRN (14:00)
[2017-07-26 14:13] VITALS: BP 131/72; PULSE 64; RESP 18; TEMP 98.2
[2017-07-26 16:24] VITALS: BP 145/85; PULSE 68; RESP 18; TEMP 98.2
[2017-07-26 21:16] VITALS: BP 137/74; PULSE 76; RESP 16; TEMP 98.2
[2017-07-27] MEDS: LABETALOL HCL 100 MG TAB PO SCH (06:45)
[2017-07-27 07:50] VITALS: BP 139/87; PULSE 73; RESP 18; TEMP 98.9
[2017-07-27] MEDS: IBUPROFEN 800 MG TAB PO PRN (11:42)
[2017-07-27 11:43] LABS: HEMATOCRIT 28.2 % (35.0-46.0); MEAN CELL VOLUME 74.9 FL (80.0-100.0); MEAN CORPUSCULAR HEMOGLOBIN 23.4 PG (27.0-34.0); MEAN CORPUSCULAR HGB CONC 31.3 % (32.0-36.0); PLATELET COUNT 119 TH/MM3 (150-450); RED BLOOD COUNT 3.77 MIL/MM3 (4.00-5.30); RED CELL DISTRIBUTION WIDTH 21.7 % (11.6-17.2); REVIEW FLAG FINAL; WHITE BLOOD COUNT 9.5 TH/MM3 (4.0-11.0)
[2017-07-27 12:09] LABS: INDIRECT BILIRUBIN 0.2 MG/DL (0.0-0.8); TOTAL BILIRUBIN ADULT 0.3 MG/DL (0.2-1.0)
--- NOTE | 2017-07-27 14:17 | HHI.OB ---
Subjective Post Day: 2 Objective Vitals/I&O Vital Signs Date Time Temp Pulse Resp B/P (MAP) Pulse Ox O2 Delivery O2 Flow Rate FiO2 07/27/17 07:50 98.9 73 18 07/27/17 07:50 139/87 (104) 07/26/17 21:16 98.2 07/26/17 21:16 76 16 137/74 (95) 07/26/17 16:24 98.2 68 18 145/85 (105) Objective Remarks GENERAL: Well-nourished, well-developed patient. CARDIOVASCULAR: Regular rate and rhythm without murmurs, gallops, or rubs. RESPIRATORY: Breath sounds equal bilaterally. No accessory muscle use. ABDOMEN/GI: Abdomen soft, tender with palpation. Fundus: Firm, non-tender at umbilicus. GENITOURINARY: Light to moderate bleeding. EXTREMITIES: No cyanosis or edema, non-tender, without signs of DVT. Medications and IVs Current Medications Medications (Trade) Dose Ordered Sig/Gurjit Route Start Time Stop Time Status Last Admin (NS Flush) 2 ml BID IV FLUSH 07/25/17 21:00 (NS Flush) 2 ml UNSCH PRN IV FLUSH 07/25/17 12:00 (Tylenol) 650 mg Q4H PRN PO 07/25/17 12:00 (Motrin) 800 mg Q8H PRN PO 07/25/17 12:00 07/27/17 11:42 (Americaine 20% Top Spr) 1 spray Q4H PRN TOPICAL 07/25/17 12:00 (Tucks Pads) 1 applic QID PRN TOPICAL 07/25/17 12:00 (Sophy-Colace) 2 tab Q12H PRN PO 07/25/17 12:00 (Ambien) 5 mg HS PRN PO 07/25/17 12:00 (Mag-Al Plus Susp Liq) 15 ml Q8H PRN PO 07/25/17 12:00 (Zofran Odt) 4 mg Q6H PRN PO 07/25/17 12:00 (Trandate) 100 mg BID@0600,1800 PO 07/25/17 18:00 07/27/17 06:45 (Proctofoam) 1 applic TID PRN RECTAL 07/26/17 14:00 07/26/17 16:27 Assessment/Plan Problem List: (1) Pre-eclampsia ICD Codes: O14.90 - Unspecified pre-eclampsia, unspecified trimester Status: Acute Qualifiers: Qualified Codes: O14.93 - Unspecified pre-eclampsia, third trimester (2) 36 weeks gestation of ICD Codes: Z3A.36 - 36 weeks gestation of Status: Acute (3) Vaginal delivery ICD Codes: O80 - Encounter for full-term uncomplicated delivery Assessment and Plan 37 yo at 35 weeks and 6 d , s/p for pre-eclampsia on labetolol 100mg po BID, BP 130-140's/70-80's, denies signs jones, visual changes labs repeated, platelets are stable at 119, LFT wnl pt feeling good pt has some tenderness on palpation of fundus bt is not taking anything at this time, advised to take mortin routine Discharge Planning dc home today with f/u in office in 1 week for bp check pt advised to f/u with office or hospital if pre-eclamptic symptoms occur Merry Wood Jul 27, 2017 14:17
--- NOTE | 2017-07-27 15:58 | HHI.DS ---
Admission Date Jul 24, 2017 at 13:45 Discharge Date: Jul 27, 2017 Admitting Diagnosis 35 + WEEKS PRE-ECLAMPSIA IN 3RD TRIMESTER THROMBOCYTOPENIA INDUCTION Diagnosis: (1) Vaginal delivery ICD Codes: O80 - Encounter for full-term uncomplicated delivery Delivery Date: Jul 25, 2017 Vaginal Delivery: Normal Infant: Female Brief History Pt is a 37 yo . Pt under care of Dr Contreras, Pt was seen here with elevated BPs on 07/22/2017. She was sent home on modified bed rest and started 24 hour urine collection. Pt was then started on Labetalol 100mg po BID Pt has h/o prior IOL o/a pre-eclampsia. Platelets are 124,000 today, down from 148,000 on 07/22/2017 Pt presents today, c/o headaches, no vision changes but reports nausea and vomiting. Active movements. No vaginal bleeding or discharge. Pt states GBS was negative in office. PLAN FOR INDUCTION Hospital Course BP'S REMAIN 130-140/70-80 THROMBOCYTOPENIA STABLE ROUTINE CARE Pt Condition on Discharge: Good Discharge Disposition: Discharge Home Discharge Instructions Diet Instructions: As Tolerated, No Restrictions Additional Diet Instructions: Drink at least 8 - 16 oz bottles of water a day Activities You Can Perform: Shower Only-No Bath, Sitz Bath Activities to Avoid: Lifting/Bending, Sexual Activity Additional Activity Instruc.: No driving until off pain medications Do not lift anything heavier than your baby in an carrier Follow up Referrals: [facility] - [address] Week @ [facility] Merry Wood Jul 27, 2017 15:58
== END 2017-07-27 15:07 | disposition home or self-care (01) | DRG 775 ==
LOC: HOBED 11:03 → H2EA 13:45 → H1EA 07-25 13:32
PROVIDERS: ADMIT Obstetrics & Gynecology; ATTEND Obstetrics & Gynecology
PROC: 3E0P3VZ Introduction of Hormone into Female Reproductive, Percutaneous Approach (ICD-10-PCS; 2017-07-24)
PROC: 10E0XZZ Delivery of Products of Conception, External Approach (ICD-10-PCS; principal; 2017-07-25)
PROC: 10907ZC Drainage of Amniotic Fluid, Therapeutic from Products of Conception, Via Natural or Artificial Opening (ICD-10-PCS; 2017-07-25)
DX: O14.94 Unspecified pre-eclampsia, complicating childbirth (principal); D69.6 Thrombocytopenia, unspecified; O99.12 Other diseases of the blood and blood-forming organs and certain disorders involving the immune mechanism complicating childbirth; R11.2 Nausea with vomiting, unspecified; Z37.0 Single live birth; Z3A.36 36 weeks gestation of pregnancy
CPT/HCPCS: 59025; 80053; 80076; 80307; 81001; 84550; 85027; 86850; 86900; 86901; J2590; J3010; J7120

== ENCOUNTER 2017-11-11 16:36 | Emergency (ER) | payer BC ==
[2017-11-11 16:39] VITALS: BP 182/99; PULSE 89; RESP 18; TEMP 98; O2SAT 100
--- NOTE | 2017-11-11 19:16 | PD ---
HPI Chief Complaint: Hypertension Time Seen by Provider: 16:39 Travel History International Travel<30 days: No Contact w/Intl Traveler<30days: No Traveled to known affect area: No History of Present Illness HPI Pt is a 37-year-old female presenting to the emergency department for evaluation of elevated blood pressure readings. Patient states she was sent by her primary doctor. Her blood pressure reading there was 160s over 120s. Patient reports a history of preeclampsia, her was delivered in July 2017. She denies any history of hypertension otherwise. She is not currently on medications. She denies any shortness of breath, chest pain for physical complaints. PFSH Past Medical History Cardiovascular Problems: Yes (Preeclampsia) Social History Alcohol Use: No Tobacco Use: No Allergies-Medications (Allergen,Severity, Reaction): Coded Allergies: No Known Allergies (Unverified Allergy, Unknown, 07/24/17) Reported Meds & Prescriptions Reported Meds & Active Scripts Active Reported Aspirin 81 Mg Chew 81 Mg CHEW DAILY [declegis] 10 Mg PO BID Iron (Ferrous Sulfate) 325 Mg Cap 325 Mg PO DAILY 1 ( Multivitamins) 30 Mg-975 Mcg-200 Mg Cap 1 Cap PO DAILY Review of Systems Except as stated in HPI: all other systems reviewed are Neg Physical Exam Narrative GENERAL: Well-developed, well-nourished, alert female. Presenting in no acute distress. SKIN: Warm and dry. HEAD: Normocephalic. EYES: No scleral icterus. No injection or drainage. NECK: Supple, trachea midline. No JVD or lymphadenopathy. CARDIOVASCULAR: Regular rate RESPIRATORY: No accessory muscle use. Data Data Last Documented VS Vital Signs Date Time Temp Pulse Resp B/P (MAP) Pulse Ox O2 Delivery O2 Flow Rate FiO2 11/11/17 16:39 98.0 89 18 182/99 (126) 100 Orders Orders Complete Blood Count With Diff (11/11/17 16:42) Comprehensive Metabolic Panel (11/11/17 16:42) MDM Medical Decision Making Medical Screen Exam Complete: Yes Emergency Medical Condition: Yes Interpretation(s) Vital Signs Date Time Temp Pulse Resp B/P (MAP) Pulse Ox O2 Delivery O2 Flow Rate FiO2 11/11/17 16:39 98.0 89 18 182/99 (126) 100 Differential Diagnosis Hypertension versus elevated blood pressure reading versus metabolic abnormality versus other Narrative Course Patient is 37-year-old female presenting to emergency department for evaluation of elevated blood pressure readings. She has no physical complaints at this time. Patient is awaiting bed placement. Patient is mildly hypertensive on arrival. Patient was called be placed in a bed, she was no longer found in the emergency department. Patient left AMA. Diagnosis Primary Impression: Left against medical advice Mindi Mata Nov 11, 2017 19:16
== END 2017-11-12 01:38 | disposition left against medical advice (07) ==
LOC: NED 16:36
DX: I10 Essential (primary) hypertension (principal); Z53.20 Procedure and treatment not carried out because of patient's decision for unspecified reasons
CPT/HCPCS: 99281